=== PATIENT | female | born 1975 | race Caucasian/White ===

== ENCOUNTER → 2024-06-03 | Outpatient (CLI) | payer OTHER, SELFPAY ==
--- NOTE | 2024-06-03 14:15 | DI.MG.S_ITS ---
BILATERAL DIGITAL SCREENING MAMMOGRAM 3D/2D WITH CAD: 06/03/2024 CLINICAL: Routine screening. Baseline exam. No prior exams were available for comparison. The breasts are heterogeneously dense, which may obscure small masses (category c / 51-75% glandular tissue). Current study was also evaluated with a Computer Aided Detection (CAD) system. There is a biopsy clip in the left breast. No significant masses, calcifications, or other findings are seen in either breast. IMPRESSION: NEGATIVE There is no mammographic evidence of malignancy. A 1 year screening mammogram is recommended. Based on the Tyrer Cuzick model (a risk assessment model) the patient's lifetime risk is 19.5% and her 10 year risk is 4.8%. According to the ACR, ACS, and NCCN guidelines, an annual breast MRI exam along with mammogram is recommended if the patient's lifetime risk is 20% or greater. This exam was interpreted at Station ID: [id number]. NOTE: For mammograms, a report in lay terms will be sent to the patient. Approximately 15% of breast malignancies will not be visualized mammographically. In the management of a palpable breast mass, a negative mammogram must not discourage biopsy of a clinically suspicious lesion. Electronically Signed By: Marcello de jesus/dionte:06/21/2024 12:15:58 letter sent: Normal Exam ACR BI-RADS Category 1: Negative
--- NOTE | 2024-06-03 14:15 | DI.CT.S_ITS ---
PROCEDURE: CT LUNG LOW DOSE SCREENING INDICATIONS: 40 plus years of smoking TECHNIQUE: Noncontrast 2.0-2.5 mm thick sections acquired from the pulmonary apices to the posterior costophrenic angles. 7 mm thick axial MIP, and 5 mm coronal and sagittal reformats were then acquired. For radiation dose reduction, the following was used: automated exposure control, adjustment of mA and/or kV according to patient size. COMPARISON: None. FINDINGS: Image quality: Diagnostic. Lower Neck: No enlarged lymph nodes. Thyroid: No thyroid nodules which require sonographic follow up, per consensus guidelines. Thyroid evaluation by noncontrast CT, however, is very limited. Axillae: No enlarged lymph nodes. Chest Wall: Unremarkable. Bones: Unremarkable. Lungs and Pleura: No pneumothorax or pleural effusions. No consolidation but there is a single suspicious 4 mm nodular radiodensity at the posterior right lung apex best seen on CT series 3, image 24. Heart: Heart size is normal. No pericardial effusion. Thoracic Vessels: The aorta and pulmonary arteries demonstrate normal size. Mediastinum and Concha: No enlarged lymph nodes. Esophagus: No wall thickening. No hiatal hernia. Upper Abdomen: Visualized upper abdomen solid organs and bowel loops appear normal. IMPRESSION: Single 4 mm nodule found within the posterior right apex as discussed. No definite emphysematous change identified. LUNG-RADS category 2; recommend follow-up low-dose noncontrast CT scanning in 1 year. Clinically Significant Non-pulmonary Findings: None. Dictated by: Luan Martel M.D. on 06/03/2024 at 16:28 Approved by: Luan Martel M.D. on 06/03/2024 at 16:35
== END ==
LOC: CT 14:15
PROVIDERS: PCP Family Medicine; Referring Provider Family Medicine; Visit Provider Family Medicine
DX: Z12.31 Encounter for screening mammogram for malignant neoplasm of breast (principal); R91.1 Solitary pulmonary nodule; Z12.2 Encounter for screening for malignant neoplasm of respiratory organs; F17.200 Nicotine dependence, unspecified, uncomplicated; R92.333 Mammographic heterogeneous density, bilateral breasts
CPT/HCPCS: 71271; 77063; 77067

== ENCOUNTER → 2024-08-05 08:47 | Outpatient (CLI) | payer OTHER, SELFPAY ==
--- NOTE | 2024-08-05 08:48 | DI.CT.S_ITS ---
PROCEDURE: CT ABDOMEN PELVIS WO/W CON INDICATIONS: Asymptomatic microscopic hematuria/tobacco use TECHNIQUE: Optional 5 mm thick noncontrast images acquired from the diaphragm to the symphysis pubis. After the administration of intravenous contrast, 5 mm thick images acquired from the diaphragm to the symphysis pubis after a 10-minute delay. 2 mm thick coronal and sagittal reformats were then performed of the kidneys and ureters. For radiation dose reduction, the following was used: automated exposure control, adjustment of mA and/or kV according to patient size. COMPARISON: None. FINDINGS: Image quality: Diagnostic Lower chest: Unremarkable lung bases. Normal heart size Liver: Subcentimeter liver lesions are too small to characterize, usually cysts Gallbladder and biliary system: Unremarkable, nondilated Pancreas: No ductal dilation Spleen: Nonenlarged Adrenals: No discrete nodules Kidneys: No solid masses. No hydronephrosis. No definite ureter filling defects. There is a 6 mm nonobstructing stone in the left upper pole. Adjacent contrast filled outpouching is seen on post contrast imaging. Focal atrophy is seen at the cortex in this region. Vessels and lymph nodes: The main portal vein is patent. No abdominal aortic aneurysm. No pathologic lymph nodes by size criteria. Bowel and peritoneum: No evidence of small bowel obstruction. No pathologic ascites. The appendix is nondilated. Body wall: Unremarkable Pelvis: Bladder appears unremarkable on CT evaluation. The uterus is absent. Bones: Unremarkable IMPRESSION: Left mid to upper pole calyceal diverticulum with a 6 mm nonobstructing calculus. No solid renal mass. In the setting of hematuria, cystoscopy could further evaluate the lower tracts if necessary. Dictated by: Franky Goss M.D. on 08/05/2024 at 12:27 Approved by: Franky Goss M.D. on 08/05/2024 at 12:32
[2024-08-05 09:22] LABS: Estimated Glomerular Filt Rate > 60 mL/min (>60)
== END ==
LOC: CT 08:47
PROVIDERS: Radiology Diagnostic Radiology; PCP Family Medicine; Referring Provider Urology; Visit Provider Urology
DX: R31.21 Asymptomatic microscopic hematuria (principal); N20.0 Calculus of kidney; F17.200 Nicotine dependence, unspecified, uncomplicated
CPT/HCPCS: 36415; 74178; 82565; Q9967

== ENCOUNTER → 2024-08-18 08:54 | Outpatient (CLI) | payer OTHER, SELFPAY ==
--- NOTE | 2024-08-18 08:56 | DI.RAD.S_ITS ---
PROCEDURE: XR KUB INDICATIONS: Kidney Stones TECHNIQUE: One view of the abdomen acquired. COMPARISON: [facility], CT, CT ABDOMEN PELVIS WO/W CON, 08/05/2024, 10:15. FINDINGS: Surgical changes and devices: None. Bowel: Bowel gas pattern is normal. Soft tissues: Faint calcification measuring 5 mm projecting over the left kidney. Visualized solid organ contours appear normal in size. Bones: No suspicious bony lesions. IMPRESSION: Faint calcification measuring 5 mm projecting over the left kidney, better evaluated on prior CT. Dictated by: Rc Frias M.D. on 08/18/2024 at 11:07 Approved by: Rc Frias M.D. on 08/18/2024 at 11:09
[2024-08-18 09:55] LABS: Add Manual Diff / Slide Review NO; Basophils Absolute Auto 100 /uL (0-100); Basophils Percent Auto 0.8 % (0-2); Eosinophils Absolute Auto 300 /uL (0-450); Eosinophils Percent Auto 3.1 % (2-4); Hematocrit 42.5 % (36-46); Hemoglobin 14.6 g/dL (12.0-16.0); Lymphocytes Absolute Auto 1900 /uL (1100-4500); Lymphocytes Percent Auto 23.1 % (25-40); Mean Corpuscular HGB Conc 34.2 % (30-36); Mean Corpuscular Hemoglobin 31.6 PG (26-34); Mean Corpuscular Volume 92.4 fL (80-100); Monocytes Absolute Auto 900 /uL (0-900); Monocytes Percent Auto 10.2 % (3-14); Neutrophils Absolute Auto 5300 /uL (1500-7000); Neutrophils Percent Auto 62.8 % (50-75); Platelet Count 230 X10^3/uL (150-400); Red Cell Distribution Width 12.2 % (11.6-14.8); White Blood Cell Count 8.4 X10^3/uL (4.5-11.0)
[2024-08-18 10:14] LABS: Alanine Aminotransferase 22 IU/L (<35); Albumin Globulin Ratio 1.1 (1.0-2.8); Alkaline Phosphatase 84 U/L (38-126); Aspartate Aminotransferase 25 IU/L (14-36); BUN Creatinine Ratio 23.6 (6-22); Bilirubin Total 0.8 mg/dL (0.2-1.3); Blood Urea Nitrogen 17 mg/dL (7-17); Calcium 9.4 mg/dL (8.4-10.2); Carbon Dioxide 26 mmol/L (22-32); Chloride 102 mmol/L (98-107); Cholesterol 218 mg/dL (140-199); Estimated Glomerular Filt Rate > 60 mL/min (>60); Globulin 3.6 g/dL (1.7-4.1); Glucose 96 mg/dL (70-100); HEMOLYSIS < 15 (0-50); Potassium 4.7 mmol/L (3.4-5.1); Sodium 132 mmol/L (137-145); Total Protein 7.6 g/dL (6.3-8.2); Triglycerides 80 mg/dL (35-150)
[2024-08-18 10:21] LABS: HDL Cholesterol 108 mg/dL (40-60); LDL Cholesterol Calculated 94 mg/dL (<100)
== END ==
PROVIDERS: PCP Family Medicine; Referring Provider Urology; Visit Provider Urology
DX: N20.0 Calculus of kidney (principal); F10.90 Alcohol use, unspecified, uncomplicated; I10 Essential (primary) hypertension; F17.200 Nicotine dependence, unspecified, uncomplicated; R31.21 Asymptomatic microscopic hematuria; I49.3 Ventricular premature depolarization
CPT/HCPCS: 36415; 74018; 80053; 80061; 85025

== ENCOUNTER 2024-08-30 09:09 | Day surgery (SDC) | payer OTHER, SELFPAY ==
[2024-08-30] MEDS: SODIUM CHLORIDE 0.9% 1,000 ML 150 ML IV (09:00)
[2024-08-30 09:31] VITALS: BP 105/65; PULSE 78; RESP 14; TEMP 36.1; O2SAT 98
--- NOTE | 2024-08-30 10:02 | PM.HP.1 ---
History of Present Illness History of Present Illness Date Patient Seen: 08/30/24 Time Patient Seen: 10:02 Chief complaint: SDC Narrative: 49-year-old white female presents for colon screening. She thinks she has an uncle with Crohn's disease, no family history of colon cancer. Her mother has irritable bowel syndrome. [facility] Medical History (Updated 08/30/24 @ 10:03 by Harvinder Maza MD) Colon cancer screening Secondhand smoke exposure Asymptomatic microscopic hematuria History of asthma History of arthritis Hx of gastroesophageal reflux (GERD) Surgical History Hx of breast biopsy Hx of umbilical hernia repair Family History Mother Cancer Gout Hyperlipidemia Hypertension Inflammatory bowel disease Thyroid disease Uncle Cancer Hypertension Uncle Cancer Hypertension Grandmother Cancer Hypertension Thyroid disease Grandfather Coronary artery disease Gout Hypertension Aunt Hypertension Aunt Hypertension Thyroid disease Social History marital status: number of children: 1 Previous occupational history: Customer Service Smoking Status: Former smoker Tobacco: How many years used: 37 alcohol intake: current caffeine: Yes Type(s) of exercise: walking frequency: 3-4 times per week Meds Home Medications and Allergies Home Medications Medication Instructions Recorded Confirmed Type bupropion HCl 150 mg 24 hr tablet, 150 mg PO QAM #90 tabs 04/28/24 06/30/24 Rx extended release (Wellbutrin XL) peg 3350-sod sulf,[id number]-rvu-klh 1,000 ml PO DIRECTED #2,000 mL 07/19/24 Rx 178.7-7.3-0.5-1.12-0.9 gram oral soln (Suflave) amoxicillin 875 mg-potassium 1 tab PO BID infection #6 tabs 07/25/24 07/25/24 Rx clavulanate 125 mg tablet metoprolol succinate 50 mg 75 mg (1.5 x 50 mg) PO DAILY #135 07/26/24 08/30/24 Rx tablet,extended release 24 hr tabs (Toprol XL) Allergies Allergy/AdvReac Type Severity Reaction Status Date / Time morphine Allergy Severe Vomiting Verified 06/30/24 11:23 Review of Systems Review of Systems ROS: Yes All systems reviewed with the patient and are negative except as otherwise documented Exam Vital Signs (past 8 hours): - 08/30/24 09:31 Temperature 97.0 F L Pulse Rate 78 Respiratory Rate 14 Blood Pressure 105/65 Pulse Oximetry 98 Oxygen Delivery Method Room Air Oxygen Delivery Method Room Air Narrative Exam Narrative: Gen: NAD, sitting comfortably in bed, appears well HEENT: Sclera are anicteric, head is normocephalic and atraumatic, trachea is midline. CV: RRR, no JVD Resp: clear to auscultation bilaterally, equal chest wall movement bilaterally Abd: soft, nontender, normoactive bowel sounds Ext: no edema, full range of motion Neuro: Cranial nerves II-XII grossly intact, no focal deficits Skin: No erythema or ecchymosis Assessment & Plan Assessment and plan (1) Colon cancer screening: Status: Acute Assessment & Plan narrative: Patient presents for colonoscopy Risks, benefits, alternatives to colonoscopy explained, including but not limited to bowel perforation or other serious complication requiring surgery at less than 1 in 5000 colonoscopies, abdominal pain, cramping or bleeding and less than 1% of colonoscopies, and the chances that we find a diagnosis that would require further intervention of about 2%. Patient agrees to proceed. Time-Based Coding :: [TOTAL MINUTES] spent with patient and on the chart (including review of chart, obtaining history, exam, reviewing outside data, placing orders, documenting exam and treatment plan, and counseling patient) on [DATE].
--- NOTE | 2024-08-30 10:20 | P.OP.COLON_ITS ---
Operative Date/Time/Diagnoses Date of procedure: 08/30/24 Time of procedure: 10:20 Pre-op diagnosis: Colon screening Post-op diagnosis: other Procedure & Clinicians Study performed: Screening colonoscopy Same procedure as scheduled: Yes Indications: Colon screening Surgeon: Harvinder Maza Procedure Notes SCOAP/Timeout: Performed Procedure in detail: Time-out was performed. Mac was induced. Patient was placed in left lateral decubitus position. The perineum was inspected without any gross abnormality. Lubricated pediatric colonoscope was inserted and advanced to the cecum. The terminal ileum was intubated. The colonoscope was withdrawn slowly inspecting the circumference of the colon. Very small polyps may have been missed, prep quality was adequate. Retroflexed view of the rectum showed small, non pro lapsed nonbleeding internal hemorrhoids. The scope was withdrawn the patient was taken to PACU in good condition. Scope withdrawal time: 6 Sedation minutes: 16 Findings: internal hemorrhoids Specimen(s): none sent Complications: none Post-procedure Recommendations: Colonoscopy in 10 years Follow up: as needed Disposition: PACU
[2024-08-30 10:22] VITALS: BP 112/67; PULSE 81; RESP 18; TEMP 37; O2SAT 97
[2024-08-30 10:27] VITALS: BP 115/74; PULSE 79; RESP 18; O2SAT 97
[2024-08-30 10:32] VITALS: BP 121/80; PULSE 71; RESP 18; TEMP 36.7; O2SAT 98
[2024-08-30 10:34] VITALS: BP 122/78; PULSE 66; RESP 16; O2SAT 98
== END 2024-08-30 10:53 | disposition home or self-care (01) ==
PROVIDERS: PCP Family Medicine; Referring Provider Surgery; Visit Provider Surgery
PROC: 0DJD8ZZ Inspection of Lower Intestinal Tract, Via Natural or Artificial Opening Endoscopic (ICD-10-PCS; CPT 45378; principal; 2024-08-30 10:15)
DX: Z12.11 Encounter for screening for malignant neoplasm of colon (principal); K64.8 Other hemorrhoids; I10 Essential (primary) hypertension; Z87.891 Personal history of nicotine dependence
CPT/HCPCS: G0121; J2405; J2704

== ENCOUNTER → 2024-09-29 10:57 | Outpatient (CLI) | payer OTHER, SELFPAY ==
[2024-09-29 22:11] LABS: BUN Creatinine Ratio 24.4 (6-22); Blood Urea Nitrogen 20 mg/dL (7-17); Calcium 9.3 mg/dL (8.4-10.2); Carbon Dioxide 30 mmol/L (22-32); Chloride 106 mmol/L (98-107); Estimated Glomerular Filt Rate > 60 mL/min (>60); Glucose 85 mg/dL (70-100); HEMOLYSIS 23 (0-50); Potassium 4.3 mmol/L (3.4-5.1); Sodium 141 mmol/L (137-145)
== END ==
PROVIDERS: PCP Family Medicine; Visit Provider Family Medicine
DX: E87.1 Hypo-osmolality and hyponatremia (principal)
CPT/HCPCS: 80048

== ENCOUNTER → 2025-01-11 11:23 | Outpatient (CLI) | payer OTHER, SELFPAY | PROVIDERS: PCP Family Medicine; Visit Provider Physician Assistant | DX: J02.9 Acute pharyngitis, unspecified (principal) | CPT/HCPCS: 87070 ==

== ENCOUNTER → 2025-04-29 09:26 | Outpatient (CLI) | payer BC, SELFPAY ==
--- NOTE | 2025-04-29 09:27 | DI.CT.S_ITS ---
PROCEDURE: CT CHEST WO CON INDICATIONS: pulmonary nodule TECHNIQUE: Noncontrast 5 mm thick sections acquired from the pulmonary apices to the posterior costophrenic angles. 1 mm lung window, 5 mm thick coronal and sagittal and 7 mm axial MIP reformats were then acquired. For radiation dose reduction, the following was used: automated exposure control, adjustment of mA and/or kV according to patient size. COMPARISON: [facility], CT, CT LUNG LOW DOSE SCREENING, 06/03/2024, 14:21. FINDINGS: Image quality: Diagnostic. Lower Neck: No enlarged lymph nodes. Thyroid: No thyroid nodules which require sonographic follow up, per consensus guidelines. Axillae: No enlarged lymph nodes. Chest Wall: Unremarkable. Bones: Unremarkable. Lungs and Pleura: No pneumothorax or pleural effusions. Stable 4 mm pulmonary nodule, posterior lateral right upper lobe, current image 77 of series 3 and previous image 24 of series 3. Heart: Heart size is normal. No pericardial effusion. Thoracic Vessels: The aorta and pulmonary arteries demonstrate normal size. Mediastinum and Concha: No enlarged lymph nodes. Esophagus: No wall thickening. No hiatal hernia. Upper Abdomen: Visualized upper abdomen solid organs and bowel loops appear normal. IMPRESSION: Stable 4 mm pulmonary nodule, likely benign. Dictated by: Jose Rafael Pena M.D. on 04/29/2025 at 13:00 Approved by: Jose Rafael Pena M.D. on 04/29/2025 at 13:03
== END ==
LOC: CT 09:27
PROVIDERS: PCP Family Medicine; Referring Provider Family Medicine; Visit Provider Family Medicine
DX: R91.1 Solitary pulmonary nodule (principal)
CPT/HCPCS: 71250

== ENCOUNTER → 2025-07-11 12:58 | Outpatient (CLI) | payer BC, SELFPAY ==
--- NOTE | 2025-07-11 12:59 | DI.MG.S_ITS ---
MM screening mammo BI: 07/11/2025. BI-RADS: 2 CLINICAL: 50-year old female for bilateral screening mammogram. Tyrer-Cuzick lifetime risk of 26.9%. No personal or first-degree family history of breast cancer. Current reported family history of breast cancer: paternal grandmother and paternal aunt. History of ovarian cancer in one first-degree relative. The patient had a prior left breast biopsy. PRIOR EXAMS 06/03/2024, 11/29/2020, 10/05/2019. MAMMOGRAPHY TECHNIQUE: 2D and 3D (tomosynthesis) digital mammographic views obtained, with additional images as needed for full coverage. Current study was also evaluated with a Computer Aided Detection (CAD) system. DENSITY C. The breasts are heterogeneously dense, which may obscure small masses. MAMMOGRAPHY FINDINGS Right: No suspicious mass, asymmetry, microcalcification, or other abnormality seen. Left: Biopsy marker present on the left. There are no suspicious masses, calcifications, or other findings in the breast. IMPRESSION: Right * No evidence of malignancy. Left * No evidence of malignancy with benign findings. RECOMMENDATIONS Bilateral * According to the Tyrer-Cuzick Risk Assessment Model, based on the information provided your patient has a greater than 20% lifetime risk for developing breast cancer. Consider supplemental screening with breast MRI and participation in a high risk screening program. * Annual screening mammography. OVERALL ASSESSMENT CATEGORY BI-RADS-2: Benign. The [employer] recommends annual screening mammography beginning at age 40 for women with average risk of breast cancer. ELECTRONICALLY SIGNED: Yesi Singer M.D. on 07/12/2025 at 10:08:28 AM PT Interpreting Station ID: [id number]
== END ==
LOC: MAMMO 12:59
PROVIDERS: PCP Family Medicine; Referring Provider Family Medicine; Visit Provider Family Medicine
DX: Z12.31 Encounter for screening mammogram for malignant neoplasm of breast (principal); R92.333 Mammographic heterogeneous density, bilateral breasts; Z80.3 Family history of malignant neoplasm of breast; Z80.41 Family history of malignant neoplasm of ovary
CPT/HCPCS: 77063; 77067